=== PATIENT | female | born 1960 | race Caucasian/White ===

== ENCOUNTER 2019-09-14 12:39 | Emergency (ER) | payer OTHER ==
[~2019-09-14] VITALS: Ht 152.4 cm; Wt 49.1 kg
[2019-09-14] MEDS ORDERED: LIDOCAINE/PF 1% 5 ML VIAL INJ ONE (13:15)
[2019-09-14] MEDS ORDERED: ACETAMINOPHEN 500 MG TABLET PO ONE (13:15)
[2019-09-14] MEDS ORDERED: PERTUSS(ACELL),DIPH,TET VAC/PF 0.5 ML VIAL IM ONE (13:15)
[2019-09-14 19:31] VITALS: BP 124/77
== END 2019-09-14 19:41 | disposition home or self-care (01) ==
LOC: EMS 12:43
DX: S82.142A Displaced bicondylar fracture of left tibia, initial encounter for closed fracture (principal); S01.521A Laceration with foreign body of lip, initial encounter; E11.9 Type 2 diabetes mellitus without complications; Z88.0 Allergy status to penicillin; W01.0XXA Fall on same level from slipping, tripping and stumbling without subsequent striking against object, initial encounter; Y93.89 Activity, other specified; Y92.89 Other specified places as the place of occurrence of the external cause; Y99.8 Other external cause status
CPT/HCPCS: 12013; 29505; 70450; 70486; 72125; 73564; 73700; 90471; 90715; 99285; J2001

== ENCOUNTER 2019-09-18 09:49 | Emergency (ER) | payer SELFPAY ==
[~2019-09-18] VITALS: Ht 152.4 cm; Wt 44.5 kg
[2019-09-18] MEDS ORDERED: METF-960 PO (09:54)
[2019-09-18 09:57] VITALS: BP 124/84
[2019-09-19 00:56] LABS: GLUCOMETER DEV NAME(LOC) AHU.; GLUCOSE,POINT OF CARE 352 MG/DL (70-110)
== END 2019-09-18 10:51 | disposition home or self-care (01) ==
LOC: EMS 09:56
DX: S01.511D Laceration without foreign body of lip, subsequent encounter (principal); M25.562 Pain in left knee; E11.9 Type 2 diabetes mellitus without complications; X58.XXXD Exposure to other specified factors, subsequent encounter